=== PATIENT | female | born 2005 | race Caucasian/White ===

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

== ENCOUNTER 2024-09-14 20:04 | Outpatient (REF) | payer BC, SELFPAY ==
[2024-09-14 21:01] LABS: Abs Immature Grans 0.01 10^3/uL (0.0-0.06); Absolute Basophil Count 0.04 10^3/uL (0.0-0.2); Absolute Eosinophil Count 0.03 10^3/uL (0.0-0.7); Absolute Lymphocyte Count 2.24 10^3/uL (1.2-3.4); Absolute Monocyte Count 0.37 10^3/uL (0.1-0.8); Absolute Neutrophil Count 2.93 10^3/uL (1.2-6.7); Basophils % 0.7 %; Eosinophils % 0.5 %; HCT 46.9 % (36.0-46.0); HGB 15.9 g/dL (11.2-15.7); Immature Grans % 0.2 %; Lymphocytes % 39.9 %; MCH 28.5 pg (27.0-33.0); MCHC 33.9 % (32.0-36.0); MCV 84 fL (80-95); MPV 11.1 fL (8.0-11.0); Monocytes % 6.6 %; Neutrophils % 52.1 %; Platelet Count 322 10^3/uL (130-400); RBC 5.58 10^6/uL (3.93-5.22); RDW 12.7 % (11.7-14.6); RDW-SD 38.7 fL; WBC 5.62 10^3/uL (4.4-10.8)
[2024-09-14 21:05] LABS: ESR 21 mm/hr (0-20)
[2024-09-14 21:57] LABS: C-Reactive Protein < 0.50 mg/dL (<or=0.5)
[2024-09-18 11:41] LABS: IgA 478 mg/dL (85-499); Interpretation (See Note); Tissue Transglutaminase IgA 5.1 CU (<20.0)
== END 2024-09-14 20:05 | disposition home or self-care (01) ==
LOC: NCHCN 20:04
PROVIDERS: PCP Family Medicine; Visit Provider Family Medicine
DX: R10.9 Unspecified abdominal pain (principal)
CPT/HCPCS: 82784; 83516; 85652; 85025; 86140

== ENCOUNTER 2024-09-15 21:51 | Outpatient (REF) | payer BC, SELFPAY ==
[2024-09-19 13:58] LABS: Helicobacter pylori Ag, Feces Negative (Negative)
== END 2024-09-15 21:52 | disposition home or self-care (01) ==
LOC: NCHCN 21:51
PROVIDERS: PCP Family Medicine; Visit Provider Family Medicine
DX: R10.9 Unspecified abdominal pain (principal); R19.4 Change in bowel habit
CPT/HCPCS: 87338

== ENCOUNTER 2025-05-24 11:50 | Outpatient (REF) | payer BC, SELFPAY ==
[2025-05-24 15:18] LABS: TSH (W/Ref FT4) 1.93 uIU/mL (0.55-4.78)
== END 2025-05-24 11:51 | disposition home or self-care (01) ==
LOC: NCHCN 11:50
PROVIDERS: PCP Family Medicine; Visit Provider Family Medicine
DX: R53.83 Other fatigue (principal)
CPT/HCPCS: 84443